=== PATIENT | male | born 1985 | race Hispanic/Latino ===

== ENCOUNTER 2018-06-05 17:53 | Emergency (ER) | payer MEDICAID ==
[2018-06-05 18:02] VITALS: BP 126/84; PULSE 86; RESP 19; TEMP 98.2; O2SAT 97; BMI 25.0
[2018-06-05] MEDS ORDERED: Oxycodone/Acetaminophen 5/325 mg Tab PO STA (18:55)
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
[2018-06-05] MEDS ORDERED: Oxycodone/Acetaminophen 5/325 mg Tab ONE (19:40)
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
== END 2018-06-05 20:15 | disposition home or self-care (01) ==
LOC: H.ER 17:53
DX: S16.1XXA Strain of muscle, fascia and tendon at neck level, initial encounter (principal); Y04.0XXA Assault by unarmed brawl or fight, initial encounter; Y92.89 Other specified places as the place of occurrence of the external cause